=== PATIENT | male | born 1935 | race Caucasian/White ===

== ENCOUNTER 2020-12-16 21:16 | Emergency (ER) | payer MEDICARE, BC ==
[2020-12-16 21:34] VITALS: BP 141/73; PULSE 102
[2020-12-16] MEDS ORDERED: Lidocaine 2% Jelly 10 ML Urojet MUCMEM ONE (22:01)
--- NOTE | 2020-12-16 22:13 | EDM.PDOC ---
ED HPI GENERAL MEDICAL PROBLEM - General Chief Complaint: Genitourinary Problem Stated Complaint: CATHETER Time Seen by Provider: 12/16/20 21:45 Source of Information: Reports: Patient, Family History Limitations: Reports: No Limitations - History of Present Illness INITIAL COMMENTS - FREE TEXT/NARRATIVE: 85-year-old male who has suffered a stroke in the past year, has an indwelling Meredith catheter. Tonight he was reaching for a phone and accidentally caught the catheter and pulled it out with the balloon inflated. This is the second time this patient has done this in the past month, both times accidentally. He has an appointment with urology this Wednesday to assess the need for chronic indwelling catheter versus suprapubic catheter. There is some blood at the meatus but he is otherwise comfortable. Onset: Sudden Duration: Hour(s): (Within the last 2 hours) Associated Symptoms: Reports: Other (Gross hematuria and bleeding at the urethral meatus) - Related Data Allergies Allergy/AdvReac Type Severity Reaction Status Date / Time No Known Allergies Allergy Verified 01/30/13 08:20 Home Meds: Home Meds Aspirin 81 mg PO DAILY 01/25/13 [History] Latanoprost [Xalatan 0.005% Ophth Soln] 1 drop EYEBOTH BEDTIME 01/25/13 [History] Multivitamin [Multivitamins] 1 tab PO DAILY 01/25/13 [History] Acetaminophen 650 mg PO TID 12/16/20 [History] Albuterol Sulfate [Proair Digihaler] 90 mcg IH Q4H PRN 12/16/20 [History] Carboxymethylcellulose Sodium [Refresh Tears] 1 drop OP QID 12/16/20 [History] Famotidine 20 mg PO DAILY 12/16/20 [History] Lutein/Min/Vit C/Vit E Acetate [Ocuvite Lutein] 1 cap PO DAILY 12/16/20 [Histor y] Midodrine 2.5 mg PO BID 12/16/20 [History] Mirtazapine 15 mg PO BEDTIME 12/16/20 [History] Sennosides [Senna] 8.6 mg PO BID 12/16/20 [History] atorvaSTATin Calcium [Atorvastatin Calcium] 10 mg PO DAILY 12/16/20 [History] ondansetron HCL [Zofran] 4 mg PO Q6H PRN 12/16/20 [History] Past Medical History HEENT History: Reports: Glaucoma, Hard of Hearing, Impaired Vision Cardiovascular History: Reports: CAD, Stents Gastrointestinal History: Reports: Chronic Constipation, GERD Genitourinary History: Reports: Retention, Urinary, Other (See Below) Other Genitourinary History: meredith catheter in place since August 2020 Musculoskeletal History: Reports: Osteoarthritis Neurological History: Reports: Brain Injury, CVA, Head Trauma Oncologic (Cancer) History: Reports: Malignant Melanoma Dermatologic History: Reports: Other (See Below) Other Dermatologic History: malignant neoplasm - Infectious Disease History Infectious Disease History: Reports: Chicken Pox, Influenza, Measles, Mumps, Scarlet Fever - Past Surgical History Male Surgical History: Reports: Other (See Below) Other Male Surgeries/Procedures: cystoscopy recently Musculoskeletal Surgical History: Reports: Hip Replacement, Knee Replacement Dermatological Surgical History: Reports: Skin Biopsy Social & Family History - Tobacco Use Tobacco Use Status *Q: Never Tobacco User - Caffeine Use Caffeine Use: Reports: Coffee - Recreational Drug Use Recreational Drug Use: No ED ROS GENERAL - Review of Systems Review Of Systems: See Below Constitutional: Denies: Fever, Chills HEENT: Reports: No Symptoms Respiratory: Denies: Shortness of Breath Cardiovascular: Denies: Chest Pain GI/Abdominal: Reports: Abdominal Pain (Some lower abdominal discomfort after the injury, no distention). Denies: Diarrhea, Nausea, Vomiting : Reports: Hematuria, Pain ED EXAM, RENAL/ - Physical Exam Exam: See Below Exam Limited By: No Limitations General Appearance: Alert, No Apparent Distress Head: Atraumatic Neck: Supple Respiratory/Chest: Lungs Clear Cardiovascular: Regular Rate, Rhythm GI/Abdominal: Soft, Non-Tender, Other (No urinary distention at this time) (Male) Exam: Other (Fresh blood which is clotted is at the urethral meatus, no active bleeding) Neurological: Alert, Other (Mild confusion which is chronic) Psychiatric: Normal Affect, Normal Mood Skin Exam: Warm, Dry Course - Vital Signs Last Recorded V/S: Last Vital Signs Temp 97.6 F 12/16/20 21:58 Pulse 102 H 12/16/20 21:58 Resp 16 12/16/20 21:58 BP 141/73 H 12/16/20 21:58 Pulse Ox 99 12/16/20 21:58 - Orders/Labs/Meds Meds: Medications Discontinued Medications Generic Name Dose Route Start Last Admin Trade Name Jamshid PRN Reason Stop Dose Admin Lidocaine HCl 10 ml 12/16/20 22:01 12/16/20 22:08 Lidocaine 2% Jelly 10 Ml Urojet MUCMEM 12/16/20 22:02 10 ml ONETIME ONE Administration - Re-Assessments/Exams Free Text/Narrative Re-Assessment/Exam: 12/16/20 22:13 According to the son he will experience urine retention if the catheter is not replaced. A Urojet was ordered, used for anesthesia and a Meredith was replaced. 12/16/20 22:18 Meredith was replaced without difficulty, 400 cc of actually very clear urine was released. Patient will recheck with urology on Wednesday as scheduled. Departure - Departure Time of Disposition: 22:33 Disposition: DC/Tfer to Assisted Care 63 Clinical Impression: Traumatic injury of bladder and urethra Qualifiers: Encounter type: initial encounter Qualified Code(s): S37.20XA - Unspecified injury of bladder, initial encounter - Discharge Information Instructions: Indwelling Urinary Catheter Care, Adult, [id number] Referrals: Lawrence Esparza NP [Primary Care Provider] - Forms: ED Department Discharge Care Plan Goals: Return for problems with the Meredith catheter such as obstruction or unexplained pain. Otherwise recheck with urology on Wednesday as scheduled. Sepsis Event Note (ED) - Evaluation Sepsis Screening Result: No Definite Risk - Focused Exam Vital Signs: Vital Signs Temp Pulse Resp BP Pulse Ox 12/16/20 21:58 97.6 F 102 H 16 141/73 H 99 12/16/20 21:32 97.6 F 102 H 16 141/73 H 99
== END 2020-12-16 22:33 ==
LOC: JP.ED 21:16
DX: S37.20XA Unspecified injury of bladder, initial encounter (principal); S37.30XA Unspecified injury of urethra, initial encounter; I25.10 Atherosclerotic heart disease of native coronary artery without angina pectoris; K21.9 Gastro-esophageal reflux disease without esophagitis; M19.90 Unspecified osteoarthritis, unspecified site; Z79.899 Other long term (current) drug therapy; Z79.82 Long term (current) use of aspirin; W23.0XXA Caught, crushed, jammed, or pinched between moving objects, initial encounter
CPT/HCPCS: 51702; 99283-25

== ENCOUNTER 2021-01-14 01:54 | Emergency (ER) | payer MEDICARE, BC ==
[2021-01-14 02:32] VITALS: BP 134/50; PULSE 53
--- NOTE | 2021-01-14 02:39 | EDM.PDOC ---
ED HPI GENERAL MEDICAL PROBLEM - General Chief Complaint: Genitourinary Problem Stated Complaint: CATHETER ISSUES Time Seen by Provider: 01/14/21 02:15 Source of Information: Reports: Patient, Family History Limitations: Reports: No Limitations - History of Present Illness INITIAL COMMENTS - FREE TEXT/NARRATIVE: 85-year-old male with a history of a stroke earlier this year, now has a chronic indwelling Meredith catheter. He had his catheter changed earlier today and now it is malfunction and he has acute urinary retention and discomfort. There is very little drainage coming through the bag. He has lower abdominal fullness and pain, no other symptoms. Onset: Gradual Duration: Hour(s): (Symptoms have been worsening for the past 8 hours) Location: Reports: Abdomen (Lower abdomen) Associated Symptoms: Denies: Fever/Chills, Malaise, Nausea/Vomiting, Shortness of Breath Bladder Pain Score (Numeric/FACES): 10 - Related Data Allergies Allergy/AdvReac Type Severity Reaction Status Date / Time No Known Allergies Allergy Verified 01/14/21 02:32 Home Meds: Home Meds Aspirin 81 mg PO DAILY 01/25/13 [History] Latanoprost [Xalatan 0.005% Ophth Soln] 1 drop EYEBOTH BEDTIME 01/25/13 [History] Multivitamin [Multivitamins] 1 tab PO DAILY 01/25/13 [History] Acetaminophen 650 mg PO TID 12/16/20 [History] Albuterol Sulfate [Proair Digihaler] 90 mcg IH Q4H PRN 12/16/20 [History] Carboxymethylcellulose Sodium [Refresh Tears] 1 drop OP QID 12/16/20 [History] Famotidine 20 mg PO DAILY 12/16/20 [History] Lutein/Min/Vit C/Vit E Acetate [Ocuvite Lutein] 1 cap PO DAILY 12/16/20 [History] Midodrine 2.5 mg PO BID 12/16/20 [History] Mirtazapine 15 mg PO BEDTIME 12/16/20 [History] Sennosides [Senna] 8.6 mg PO BID 12/16/20 [History] atorvaSTATin Calcium [Atorvastatin Calcium] 10 mg PO DAILY 12/16/20 [History] ondansetron HCL [Zofran] 4 mg PO Q6H PRN 12/16/20 [History] Past Medical History HEENT History: Reports: Glaucoma, Hard of Hearing, Impaired Vision Cardiovascular History: Reports: CAD, Stents Gastrointestinal History: Reports: Chronic Constipation, GERD Genitourinary History: Reports: Retention, Urinary, Other (See Below) Other Genitourinary History: meredith catheter in place since August 2020 Musculoskeletal History: Reports: Osteoarthritis Neurological History: Reports: Brain Injury, CVA, Head Trauma Oncologic (Cancer) History: Reports: Malignant Melanoma Dermatologic History: Reports: Other (See Below) Other Dermatologic History: malignant neoplasm - Infectious Disease History Infectious Disease History: Reports: Chicken Pox, Influenza, Measles, Mumps, Scarlet Fever - Past Surgical History Male Surgical History: Reports: Other (See Below) Other Male Surgeries/Procedures: cystoscopy recently Musculoskeletal Surgical History: Reports: Hip Replacement, Knee Replacement Dermatological Surgical History: Reports: Skin Biopsy Social & Family History - Tobacco Use Tobacco Use Status *Q: Former Tobacco User Used Tobacco, but Quit: Yes Month/Year Tobacco Last Used: 1986 - Caffeine Use Caffeine Use: Reports: Coffee - Recreational Drug Use Recreational Drug Use: No ED ROS GENERAL - Review of Systems Review Of Systems: See Below Constitutional: Denies: Fever, Chills Respiratory: Denies: Shortness of Breath Cardiovascular: Denies: Chest Pain GI/Abdominal: Reports: Abdominal Pain Skin: Reports: No Symptoms Neurological: Denies: Headache ED EXAM, RENAL/ - Physical Exam Exam: See Below Exam Limited By: No Limitations General Appearance: Alert, Moderate Distress, Other (Patient is fairly uncomfortable due to urine retention) Respiratory/Chest: No Respiratory Distress GI/Abdominal: Tender (Tender with urinary bladder distention over the lower abdomen) Neurological: Alert, Oriented Skin Exam: Warm, Dry Course - Vital Signs Last Recorded V/S: Last Vital Signs Temp 97.9 F 01/14/21 02:29 Pulse 53 L 01/14/21 02:29 Resp 16 01/14/21 02:29 BP 134/50 L 01/14/21 02:29 Pulse Ox 99 01/14/21 02:29 - Re-Assessments/Exams Free Text/Narrative Re-Assessment/Exam: 01/14/21 06:39 Bladder scan revealed a bladder volume of 700 cc despite the catheter. Attempt to clear the catheter was done which was unsuccessful, so it was removed and replaced with a 14-gauge Meredith catheter. He had over 700 cc urine drained which there were a few small blood clots but mostly clear urine. His symptoms resolved. Departure - Departure Time of Disposition: 02:43 Disposition: Home, Self-Care 01 Clinical Impression: Acute urinary retention Malfunction of Meredith catheter Qualifiers: Encounter type: initial encounter Qualified Code(s): T83.011A - Breakdown (mechanical) of indwelling urethral catheter, initial encounter - Discharge Information Instructions: Indwelling Urinary Catheter Care, Adult Referrals: PCP,None [Primary Care Provider] - Forms: ED Department Discharge Care Plan Goals: Return if you redevelop problems with the current catheter such as obstruction, significant bleeding or pain. Sepsis Event Note (ED) - Evaluation Sepsis Screening Result: No Definite Risk - Focused Exam Vital Signs: Vital Signs Temp Pulse Resp BP Pulse Ox 01/14/21 02:29 97.9 F 53 L 16 134/50 L 99
== END 2021-01-14 02:51 | disposition home or self-care (01) ==
LOC: JP.ED 01:54
DX: T83.011A Breakdown (mechanical) of indwelling urethral catheter, initial encounter (principal); R33.9 Retention of urine, unspecified
CPT/HCPCS: 51702; 99283-25

== ENCOUNTER 2021-04-14 11:47 | Inpatient (IN) | payer MEDICARE, BC ==
[2021-04-14] MEDS ORDERED: Sodium Chloride 0.9% 10 ML Syringe FLUSH PRN (12:00)
--- NOTE | 2021-04-14 12:14 | EDM.PDOC ---
ED HPI GENERAL MEDICAL PROBLEM - General Chief Complaint: Cardiovascular Problem Stated Complaint: LOW HEART RATE Time Seen by Provider: 04/14/21 12:00 Source of Information: Reports: Patient, RN Notes Reviewed History Limitations: Reports: No Limitations - History of Present Illness INITIAL COMMENTS - FREE TEXT/NARRATIVE: 86-year-old gentleman presents emergency department today for evaluation of heart rate. He is completely asymptomatic he is a assisted-living resident was found to be bradycardic by nursing staff sent to the emergency department for further evaluation - Related Data Allergies Allergy/AdvReac Type Severity Reaction Status Date / Time No Known Allergies Allergy Verified 04/14/21 12:12 Home Meds: Home Meds Aspirin 81 mg PO DAILY 01/25/13 [History] Latanoprost [Xalatan 0.005% Ophth Soln] 1 drop EYEBOTH BEDTIME 01/25/13 [History] Multivitamin [Multivitamins] 1 tab PO DAILY 01/25/13 [History] Acetaminophen 650 mg PO TID 12/16/20 [History] Albuterol Sulfate [Proair Digihaler] 90 mcg IH Q4H PRN 12/16/20 [History] Carboxymethylcellulose Sodium [Refresh Tears] 1 drop OP QID 12/16/20 [History] Famotidine 20 mg PO DAILY 12/16/20 [History] Lutein/Min/Vit C/Vit E Acetate [Ocuvite Lutein] 1 cap PO DAILY 12/16/20 [History] Midodrine 2.5 mg PO BID 12/16/20 [History] Mirtazapine 15 mg PO BEDTIME 12/16/20 [History] Sennosides [Senna] 8.6 mg PO BID 12/16/20 [History] atorvaSTATin Calcium [Atorvastatin Calcium] 10 mg PO DAILY 12/16/20 [History] ondansetron HCL [Zofran] 4 mg PO Q6H PRN 12/16/20 [History] Past Medical History HEENT History: Reports: Glaucoma, Hard of Hearing, Impaired Vision Cardiovascular History: Reports: CAD, Stents Gastrointestinal History: Reports: Chronic Constipation, GERD Genitourinary History: Reports: Retention, Urinary, Other (See Below) Other Genitourinary History: meredith catheter in place since August 2020 Musculoskeletal History: Reports: Osteoarthritis Neurological History: Reports: Brain Injury, CVA, Head Trauma Oncologic (Cancer) History: Reports: Malignant Melanoma Dermatologic History: Reports: Other (See Below) Other Dermatologic History: malignant neoplasm - Infectious Disease History Infectious Disease History: Reports: Chicken Pox, Influenza, Measles, Mumps, Scarlet Fever - Past Surgical History Male Surgical History: Reports: Other (See Below) Other Male Surgeries/Procedures: cystoscopy recently Musculoskeletal Surgical History: Reports: Hip Replacement, Knee Replacement Dermatological Surgical History: Reports: Skin Biopsy Social & Family History - Caffeine Use Caffeine Use: Reports: Coffee ED ROS GENERAL - Review of Systems Review Of Systems: See Below Constitutional: Reports: No Symptoms Respiratory: Reports: No Symptoms Cardiovascular: Reports: No Symptoms GI/Abdominal: Reports: No Symptoms ED EXAM, GENERAL - Physical Exam Exam: See Below Exam Limited By: No Limitations General Appearance: Alert, WD/WN, No Apparent Distress Respiratory/Chest: No Respiratory Distress, Lungs Clear, Normal Breath Sounds, No Accessory Muscle Use, Chest Non-Tender Cardiovascular: Bradycardia #1 Interpretation EKG Date: 04/14/21 Time: 12:13 Rhythm: Other (3ed degree av block) Heartwell: Normal P-Wave: Variable QRS: Normal ST-T: Normal QT: Normal Comparison: NA - No Prior EKG Course - Vital Signs Last Recorded V/S: Last Vital Signs Temp 97.9 F 04/14/21 12:12 Pulse 34 L 04/14/21 13:40 Resp 12 04/14/21 12:56 BP 171/58 H 04/14/21 13:40 Pulse Ox 98 04/14/21 13:40 - Orders/Labs/Meds Orders: Active Orders 24 hr Category Date Time Status Cardiac Monitoring [RC] .As Directed Care 04/14/21 12:00 Active Peripheral IV Care [RC] . DIRECTED Care 04/14/21 12:01 Active Sodium Chloride 0.9% [Saline Flush] Med 04/14/21 12:00 Active 10 ml FLUSH ASDIRECTED PRN Peripheral IV Insertion Adult [OM.PC] Stat Oth 04/14/21 12:00 Ordered Saline Lock Insert [OM.PC] Stat Oth 04/14/21 12:00 Ordered EKG 12 Lead [EK] Stat Ther 04/14/21 12:01 Ordered Medication Orders Sodium Chloride (Sodium Chloride 0.9% 10 Ml Syringe) 10 ml FLUSH ASDIRECTED PRN PRN Reason: Keep Vein Open Last Admin: 04/14/21 12:17 Dose: 10 ml Documented by: PATRICIA Labs: Laboratory Tests 04/14/21 04/14/21 04/14/21 Range/Units 12:09 12:25 12:25 WBC 7.9 (4.5-11.0) K/uL RBC 4.03 L (4.30-5.90) M/uL Hgb 12.2 (12.0-15.0) g/dL Hct 37.3 L (40.0-54.0) % MCV 93 (80-98) fL MCH 30 (27-31) pg MCHC 33 (32-36) % Plt Count 183 (150-400) K/uL Neut % (Auto) 51.1 (36-66) % Lymph % (Auto) 34.0 (24-44) % Hancock % (Auto) 12.1 H (2-6) % Eos % (Auto) 2.3 (2-4) % Baso % (Auto) 0.5 (0-1) % Sodium 142 (140-148) mmol/L Potassium 4.1 (3.6-5.2) mmol/L Chloride 109 H (100-108) mmol/L Carbon Dioxide 22 (21-32) mmol/L Anion Gap 15.1 H (5.0-14.0) mmol/L BUN 11 (7-18) mg/dL Creatinine 0.9 (0.8-1.3) mg/dL Est Cr Clr Drug Dosing 58.59 mL/min Estimated GFR (MDRD) > 60 (>60) Glucose 120 H (74-106) mg/dL Calcium 8.6 (8.5-10.1) mg/dL Total Bilirubin 0.5 (0.2-1.0) mg/dL AST 13 L (15-37) U/L ALT 16 (12-78) U/L Alkaline Phosphatase 72 (46-116) U/L Troponin I High Sens 21.3 (<=60.3) pg/mL Total Protein 6.4 (6.4-8.2) g/dL Albumin 3.2 L (3.4-5.0) g/dL Globulin 3.2 (2.3-3.5) g/dL Albumin/Globulin Ratio 1.0 L (1.2-2.2) TSH, Ultra Sensitive 3.743 H (0.358-3.740) uIU/mL Meds: Medications Generic Name Dose Route Start Last Admin Trade Name Freq PRN Reason Stop Dose Admin Sodium Chloride 10 ml 04/14/21 12:00 04/14/21 12:17 Sodium Chloride 0.9% 10 Ml Syringe FLUSH 10 ml ASDIRECTED PRN Administration Keep Vein Open Departure - Departure Time of Disposition: 13:48 Disposition: Refer to Observation Condition: Fair Clinical Impression: Third degree AV block Referrals: Lawrence Esparza, [employer] ADMINISTRATOR [Primary Care Provider] - Forms: ED Department Discharge Sepsis Event Note (ED) - Evaluation Sepsis Screening Result: No Definite Risk - Focused Exam Vital Signs: Vital Signs Temp Pulse Resp BP Pulse Ox 04/14/21 13:40 34 L 171/58 H 98 04/14/21 12:56 35 L 12 151/47 H 100 04/14/21 12:31 35 L 15 173/59 H 100 04/14/21 12:12 97.9 F 36 L 20 184/58 H 98 04/14/21 12:00 97.9 F 36 L 20 184/58 H 98 - My Orders Last 24 Hours: My Active Orders 04/14/21 12:00 Cardiac Monitoring [RC] .As Directed Sodium Chloride 0.9% [Saline Flush] 10 ml FLUSH ASDIRECTED PRN Peripheral IV Insertion Adult [OM.PC] Stat Saline Lock Insert [OM.PC] Stat 04/14/21 12:01 Peripheral IV Care [RC] . DIRECTED EKG 12 Lead [EK] Stat - Assessment/Plan Last 24 Hours: My Active Orders 04/14/21 12:00 Cardiac Monitoring [RC] .As Directed Sodium Chloride 0.9% [Saline Flush] 10 ml FLUSH ASDIRECTED PRN Peripheral IV Insertion Adult [OM.PC] Stat Saline Lock Insert [OM.PC] Stat 04/14/21 12:01 Peripheral IV Care [RC] . DIRECTED EKG 12 Lead [EK] Stat Plan: Assessment Acuity = acute Site and laterality = third-degree heart block Etiology = unknown Manifestations = bradycardia Location of injury = Home Lab values = CBC unremarkable CMP unremarkable TSH slightly elevated 3.74 EKG shows bradycardia with no ST elevations or depressions there is a third-degree heart block present Plan Call discussed case Dr. Hendricks surgeon on-call at 1330 kindly agreed for pacemaker placement plan is to call the pacemaker route service representative cortney get a pacemaker in for implantation tomorrow morning. Call discussed hospitalist on- call currently agreed to come to the ED and evaluate the patient for admission This note was dictated using [employer] voice recognition software please call with any questions on syntax or grammar.
--- NOTE | 2021-04-14 14:31 | PCM.HP.2 ---
H&P History of Present Illness - General Date of Service: 04/14/21 Admit Problem/Dx: Admission Diagnosis/Problem Admission Diagnosis/Problem Complete heart block by electrocardiogram Source of Information: Patient, Family, Provider History Limitations: Reports: No Limitations - History of Present Illness Initial Comments - Free Text/Narative: CC: I feel fine HPI: Butch presents to the emergency room today at the recommendation of the nurse at his assisted living facility. They were doing routine checks of his vital signs and found his heart rate to be in the 30s. He reports that he feels fine. He has not had any dizziness or lightheadedness with standing or walking. He has not had any chest tightness or chest pain. He does not get short of breath when he is active. He walks about 1/2 mile each morning and has had no limitations or change in his functional status for quite some time. No recent fevers. He reports that he feels well and has not had any recent difficulties. He does have chronic urinary retention and has a Meredith catheter in place. He has had multiple previous surgeries and has never had any difficulty with anesthesia. Work-up in the emergency room did reveal complete heart block on the EKG. His heart rate has been pretty consistent in the low 30s. Blood pressure has been moderately elevated. Lab work has been fairly unremarkable. Plan is for pacemaker implantation tomorrow. - Related Data Allergies/Adverse Reactions: Allergies Allergy/AdvReac Type Severity Reaction Status Date / Time No Known Allergies Allergy Verified 04/14/21 12:12 Home Medications: Home Meds Aspirin 81 mg PO DAILY 01/25/13 [History] Latanoprost [Xalatan 0.005% [facility] Soln] 1 drop EYEBOTH BEDTIME 01/25/13 [History] Multivitamin [Multivitamins] 1 tab PO DAILY 01/25/13 [History] Acetaminophen 650 mg PO TID 12/16/20 [History] Albuterol Sulfate [Proair Digihaler] 90 mcg IH Q4H PRN 12/16/20 [History] Carboxymethylcellulose Sodium [Refresh Tears] 1 drop OP QID 12/16/20 [History] Famotidine 20 mg PO DAILY 12/16/20 [History] Lutein/Min/Vit C/Vit E Acetate [Ocuvite Lutein] 1 cap PO DAILY 12/16/20 [History] Midodrine 2.5 mg PO BID 12/16/20 [History] Mirtazapine 15 mg PO BEDTIME 12/16/20 [History] Sennosides [Senna] 8.6 mg PO BID 12/16/20 [History] atorvaSTATin Calcium [Atorvastatin Calcium] 10 mg PO DAILY 12/16/20 [History] ondansetron HCL [Zofran] 4 mg PO Q6H PRN 12/16/20 [History] Past Medical History HEENT History: Reports: Glaucoma, Hard of Hearing, Impaired Vision Cardiovascular History: Reports: CAD, Stents Gastrointestinal History: Reports: Chronic Constipation, GERD Genitourinary History: Reports: Retention, Urinary, Other (See Below) Other Genitourinary History: meredith catheter in place since August 2020 Musculoskeletal History: Reports: Osteoarthritis Neurological History: Reports: Brain Injury, CVA, Head Trauma Oncologic (Cancer) History: Reports: Malignant Melanoma, Other (See Below) Other Oncologic History: skin cancer Dermatologic History: Reports: Other (See Below) Other Dermatologic History: malignant neoplasm - Infectious Disease History Infectious Disease History: Reports: Chicken Pox, Influenza, Measles, Mumps, Scarlet Fever - Past Surgical History Male Surgical History: Reports: Other (See Below) Other Male Surgeries/Procedures: cystoscopy recently Musculoskeletal Surgical History: Reports: Hip Replacement, Knee Replacement Dermatological Surgical History: Reports: Skin Biopsy Social & Family History - Family History Cardiac: Denies: CAD - Tobacco Use Tobacco Use Status *Q: Former Tobacco User Used Tobacco, but Quit: Yes Month/Year Tobacco Last Used: 0 - Caffeine Use Caffeine Use: Reports: Coffee - Alcohol Use Alcohol Use History: No Alcohol Use in Last Twelve Months: No - Recreational Drug Use Recreational Drug Use: No H&P Review of Systems - Review of Systems: Review Of Systems: See Below Free Text/Narrative: A complete 12 point review of systems was obtained. Pertinent positives and negatives are noted in the history of present illness. All other systems were reviewed and were negative except as noted. Exam - Exam Exam: See Below - Vital Signs Vital Signs: Last Vital Signs Temp 36.6 C 04/14/21 12:12 Pulse 34 L 04/14/21 13:40 Resp 12 04/14/21 12:56 BP 171/58 H 04/14/21 13:40 Pulse Ox 98 04/14/21 13:40 Weight: 70.307 kg - Exam Quality Assessment: No: Supplemental Oxygen General: Alert, Oriented, Cooperative. No: Mild Distress HEENT: Conjunctiva Clear, Mucosa Moist & [place]. No: Scleral Icterus Neck: Supple, Trachea Midline. No: Lymphadenopathy Lungs: Clear to Auscultation, Normal Respiratory Effort Cardiovascular: Regular Rhythm, Bradycardia. No: Systolic Murmur GI/Abdominal Exam: Normal Bowel Sounds, Soft, Non-Tender, No Distention Extremities: No Pedal Edema, Other (catheter leg bag on right leg). No: Increased Warmth Peripheral Pulses: 2+: Dorsalis Pedis (L), Dorsalis Pedis (R) Skin: Warm, Dry, Other (round scab left cheek near the ear ) Neuro Extensive - Mental Status: Alert, Oriented x3, Nl Response to Commands Neuro Extensive - Motor, Sensory, Reflexes: No: Dysarthria, Abnormal Motor, Tremor Psychiatric: Alert, Normal Affect - Patient Data Lab Results Last 24 hrs: Laboratory Results - last 24 hr 04/14/21 04/14/21 04/14/21 Range/Units 12:09 12:25 12:25 WBC 7.9 (4.5-11.0) K/uL RBC 4.03 L (4.30-5.90) M/uL Hgb 12.2 (12.0-15.0) g/dL Hct 37.3 L (40.0-54.0) % MCV 93 (80-98) fL MCH 30 (27-31) pg MCHC 33 (32-36) % Plt Count 183 (150-400) K/uL Neut % (Auto) 51.1 (36-66) % Lymph % (Auto) 34.0 (24-44) % [place] % (Auto) 12.1 H (2-6) % Eos % (Auto) 2.3 (2-4) % Baso % (Auto) 0.5 (0-1) % Sodium 142 (140-148) mmol/L Potassium 4.1 (3.6-5.2) mmol/L Chloride 109 H (100-108) mmol/L Carbon Dioxide 22 (21-32) mmol/L Anion Gap 15.1 H (5.0-14.0) mmol/L BUN 11 (7-18) mg/dL Creatinine 0.9 (0.8-1.3) mg/dL Est Cr Clr Drug Dosing 58.59 mL/min Estimated GFR (MDRD) > 60 (>60) Glucose 120 H (74-106) mg/dL Calcium 8.6 (8.5-10.1) mg/dL Total Bilirubin 0.5 (0.2-1.0) mg/dL AST 13 L (15-37) U/L ALT 16 (12-78) U/L Alkaline Phosphatase 72 (46-116) U/L Troponin I High Sens 21.3 (<=60.3) pg/mL Total Protein 6.4 (6.4-8.2) g/dL Albumin 3.2 L (3.4-5.0) g/dL Globulin 3.2 (2.3-3.5) g/dL Albumin/Globulin Ratio 1.0 L (1.2-2.2) TSH, Ultra Sensitive 3.743 H (0.358-3.740) uIU/mL Result Diagrams: 04/14/21 12:25 04/14/21 12:25 #1 Interpretation EKG Date: 04/14/21 Rhythm: Other (complete heart block) Rate (Beats/Min): 34 [place]: Normal P-Wave: Present QRS: RBBB ST-T: Normal QT: Normal Comparison: Change From Previous EKG EKG Interpretation Comments: EKG image personally reviewed Sepsis Event Note - Evaluation Sepsis Screening Result: No Definite Risk - Focused Exam Vital Signs: Vital Signs Temp Pulse Resp BP Pulse Ox 04/14/21 13:40 34 L 171/58 H 98 04/14/21 12:56 35 L 12 151/47 H 100 04/14/21 12:31 35 L 15 173/59 H 100 04/14/21 12:12 36.6 C 36 L 20 184/58 H 98 04/14/21 12:00 36.6 C 36 L 20 184/58 H 98 *Q Meaningful Use (ADM) - VTE Risk Assess *Q Each Risk Factor Represents 1 Point: Minor Surgery Planned Total Score 1 Point Risk Factors: 1 Each Risk Factor Represents 2 Points: Malignancy (present or previous) Total Score 2 Point Risk Factors: 2 Each Risk Factor Represents 3 Points: Age 75 Years or Greater Total Score 3 Point Risk Factors: 3 Each Risk Factor Represents 5 Points: None Total Score 5 Point Risk Factors: 0 Venous Thromboembolism Risk Factor Score *Q: 6 - Problem List (1) Third degree AV block SNOMED Code(s): 72872341 ICD Code: I44.2 - ATRIOVENTRICULAR BLOCK, COMPLETE Status: Acute Current Visit: Yes (2) CAD (coronary artery disease) SNOMED Code(s): 06516802 ICD Code: I25.10 - ATHSCL HEART DISEASE OF [place] CORONARY ARTERY W/O ANG PCTRS Status: Chronic Current Visit: Yes Qualifiers: Coronary Disease-Associated Artery/Lesion type: [place] artery [place] vs. transplanted heart: [place] heart Associated angina: without angina Qualified Code(s): I25.10 - Atherosclerotic heart disease of [place] coronary artery without angina pectoris (3) Urinary retention SNOMED Code(s): 683663257 ICD Code: R33.9 - RETENTION OF URINE, UNSPECIFIED Status: Chronic Current Visit: Yes Problem List Initiated/Reviewed/Updated: Yes Orders Last 24hrs: Active Orders 24 hr Category Date Time Status Patient Status Manage Transfer [TRANSFER] Routine ADT 04/14/21 14:21 Ordered Cardiac Monitoring [RC] .As Directed Care 04/14/21 12:00 Active Peripheral IV Care [RC] . DIRECTED Care 04/14/21 12:01 Active COVID-19/FLU A+B/RSV [MOLEC] Stat Lab 04/14/21 14:16 Ordered Sodium Chloride 0.9% [Saline Flush] Med 04/14/21 12:00 Active 10 ml FLUSH ASDIRECTED PRN Isolation [COMM] Stat Oth 04/14/21 14:02 Ordered Peripheral IV Insertion Adult [OM.PC] Stat Oth 04/14/21 12:00 Ordered Saline Lock Insert [OM.PC] Stat Oth 04/14/21 12:00 Ordered Resuscitation Status Routine Resus Stat 04/14/21 14:23 Ordered EKG 12 Lead [EK] Stat Ther 04/14/21 12:01 Ordered Medication Orders Sodium Chloride (Sodium Chloride 0.9% 10 Ml Syringe) 10 ml FLUSH ASDIRECTED PRN PRN Reason: Keep Vein Open Last Admin: 04/14/21 12:17 Dose: 10 ml Documented by: PATRICIA Assessment/Plan Comment:: ASSESSMENT AND PLAN - Complete heart block-surprisingly no/minimal symptoms. Found during routine vital sign check. Risk versus benefit of pacemaker implantation discussed with patient and he is interested in pacemaker placement. No previous difficulty with anesthesia. Good functional status. I believe he is in optimal achievable medical condition for the proposed procedure. -Leave transcutaneous pacing pads in place overnight, pace if indicated -Cardiac monitoring -Surgical consultation for pacemaker placement tomorrow Coronary artery disease-history of stenting about 20 years ago. No active anginal symptoms. -Continue medical management Urinary retention-chronic issue. No recent changes. -Routine Meredith catheter care Maintenance issues - -DVT prophylaxis-mechanical -GI prophylaxis-H2 rosalba -Nutrition-regular diet today, nothing by mouth after midnight -Meredith catheter-chronic indwelling catheter CODE STATUS -DNR/DNI Admission justification -this patient will be admitted for inpatient services and is medically appropriate meeting medical necessity for inpatient admission as outlined in my documentation. I reasonably expect the patient will require inpatient services that span a period time over 2 midnights. I reasonably expect this patient to be discharged or transferred within 96 hours after admission to the [facility]. Disposition -I anticipate discharge home after the hospital stay Primary care physician - Rajani Catherine - Extended Care Sukhwinder Jordan M.D. - Mortality Measure Prognosis:: Good
[2021-04-14 14:56] LABS: CORONAVIRUS COVID-19 NAA NEGATIVE (NEGATIVE)
[2021-04-14] MEDS ORDERED: Ondansetron 4 MG/2 ML SDV IV PRN (16:59)
[2021-04-14] MEDS ORDERED: LORazepam 2 MG/ML SDV IVPUSH PRN (16:59)
[2021-04-14] MEDS ORDERED: Ondansetron 4 MG Tab.DIS PO PRN (16:59)
[2021-04-14] MEDS ORDERED: Magnesium Hydroxide 400 MG/5 ML Susp 30 ML Cup PO PRN (16:59)
[2021-04-14] MEDS ORDERED: Acetaminophen 325 MG Tab PO PRN (16:59)
[2021-04-14] MEDS ORDERED: Melatonin 3 MG Tab PO PRN (16:59)
[2021-04-14] MEDS ORDERED: oxyCODONE 5 MG Tab PO PRN (16:59)
[2021-04-14] MEDS: Hypromellose 0.3% Ophth Soln 15 ML Bottle EYEBOTH SCH ×2 (18:37→22:00)
[2021-04-14] MEDS: Midodrine 5 MG Tab PO SCH (18:38)
[2021-04-14] MEDS: Sennosides 8.6 MG Tab PO SCH (20:08)
[2021-04-14] MEDS: Latanoprost 0.005% Ophth Soln 2.5 ML Bottle EYEBOTH SCH (20:09)
[2021-04-14] MEDS: Mirtazapine 15 MG Tab PO SCH (20:09)
[2021-04-14] MEDS: Acetaminophen 325 MG Tab PO SCH (20:09)
[2021-04-14] MEDS ORDERED: Lactated Ringers 1,000 ML IV SCH (23:00)
[2021-04-15] MEDS: Hypromellose 0.3% Ophth Soln 15 ML Bottle EYEBOTH SCH ×4 (05:31→21:12)
[2021-04-15] MEDS ORDERED: Bupivacaine 0.5% 50 ML MDV ONE (06:41)
[2021-04-15] MEDS ORDERED: Lidocaine 1% with EPINEPHrine 1:100,000 50 ML MDV ONE (06:42)
[2021-04-15] MEDS ORDERED: Meropenem 500 MG SDV ONE (06:42)
[2021-04-15] MEDS ORDERED: ceFAZolin 2 GM in Premix Bag 1 BAG IV ONE (06:55)
--- NOTE | 2021-04-15 07:14 | PCM.CONS ---
H&P History of Present Illness - General Date of Service: 04/15/21 Admit Problem/Dx: Admission Diagnosis/Problem Admission Diagnosis/Problem Complete heart block by electrocardiogram Source of Information: Patient History Limitations: Reports: No Limitations - History of Present Illness Initial Comments - Free Text/Narative: Butch is an 86 year old male who lives in assisted living and had his routine vital signs checked yesterday and was found to have a heart rate in the 30s. He was evaluated in the ED and was diagnosed with 3rd Degree Heart Block. Reports no symptoms. NPO this morning. Associated Symptoms: Reports: No Other Symptoms - Related Data Allergies/Adverse Reactions: Allergies Allergy/AdvReac Type Severity Reaction Status Date / Time No Known Allergies Allergy Verified 04/14/21 12:12 Home Medications: Home Meds Aspirin 81 mg PO DAILY 01/25/13 [History] Latanoprost [Xalatan 0.005% [facility] Soln] 1 drop EYEBOTH BEDTIME 01/25/13 [History] Multivitamin [Multivitamins] 1 tab PO DAILY 01/25/13 [History] Acetaminophen 650 mg PO TID 12/16/20 [History] Albuterol Sulfate [Proair Digihaler] 90 mcg IH Q4H PRN 12/16/20 [History] Carboxymethylcellulose Sodium [Refresh Tears] 1 drop OP QID 12/16/20 [History] Famotidine 20 mg PO DAILY 12/16/20 [History] Lutein/Min/Vit C/Vit E Acetate [Ocuvite Lutein] 1 cap PO DAILY 12/16/20 [History] Midodrine 2.5 mg PO BID 12/16/20 [History] Mirtazapine 15 mg PO BEDTIME 12/16/20 [History] Sennosides [Senna] 8.6 mg PO BID 12/16/20 [History] atorvaSTATin Calcium [Atorvastatin Calcium] 10 mg PO DAILY 12/16/20 [History] ondansetron HCL [Zofran] 4 mg PO Q6H PRN 12/16/20 [History] Past Medical History HEENT History: Reports: Glaucoma, Hard of Hearing, Impaired Vision Cardiovascular History: Reports: CAD, Stents Gastrointestinal History: Reports: Chronic Constipation, GERD Genitourinary History: Reports: Retention, Urinary, Other (See Below) Other Genitourinary History: meredith catheter in place since August 2020 Musculoskeletal History: Reports: Osteoarthritis Neurological History: Reports: Brain Injury, CVA, Head Trauma Oncologic (Cancer) History: Reports: Malignant Melanoma, Other (See Below) Other Oncologic History: skin cancer Dermatologic History: Reports: Other (See Below) Other Dermatologic History: malignant neoplasm - Infectious Disease History Infectious Disease History: Reports: Chicken Pox, Influenza, Measles, Mumps, Scarlet Fever - Past Surgical History Male Surgical History: Reports: Other (See Below) Other Male Surgeries/Procedures: cystoscopy recently Musculoskeletal Surgical History: Reports: Hip Replacement, Knee Replacement Dermatological Surgical History: Reports: Skin Biopsy Social & Family History - Family History Cardiac: Denies: CAD - Tobacco Use Tobacco Use Status *Q: Former Tobacco User Used Tobacco, but Quit: Yes Month/Year Tobacco Last Used: 0 - Caffeine Use Caffeine Use: Reports: Coffee - Recreational Drug Use Recreational Drug Use: No H&P Review of Systems - Review of Systems: Review Of Systems: Comprehensive ROS is negative, except as noted in HPI. Exam - Exam Exam: See Below - Vital Signs Vital Signs: Last Vital Signs Temp 97.8 F 04/15/21 04:00 Pulse 33 L 04/15/21 01:09 Resp 14 04/15/21 04:00 BP 162/65 H 04/15/21 04:00 Pulse Ox 99 04/15/21 04:00 Weight: 155 lb 6.814 oz - Exam General: Alert, Oriented, Cooperative HEENT: PERRLA, Conjunctiva Clear Neck: Supple, Trachea Midline Lungs: Clear to Auscultation, Normal Respiratory Effort Cardiovascular: Other (Heart rate at 36. ) (Male) Exam: Deferred Rectal (Males) Exam: Deferred Back Exam: Normal Inspection Extremities: Normal Inspection Skin: Warm, Dry, Intact Neurological: Cranial Nerves Intact Neuro Extensive - Mental Status: Alert, Oriented x3, Normal Mood/Affect, Memory Intact Psychiatric: Alert, Normal Affect, Normal Mood - Patient Data Lab Results Last 24 hrs: Laboratory Results - last 24 hr 04/14/21 04/14/21 04/14/21 Range/Units 12:09 12:25 12:25 WBC 7.9 (4.5-11.0) K/uL RBC 4.03 L (4.30-5.90) M/uL Hgb 12.2 (12.0-15.0) g/dL Hct 37.3 L (40.0-54.0) % MCV 93 (80-98) fL MCH 30 (27-31) pg MCHC 33 (32-36) % Plt Count 183 (150-400) K/uL Neut % (Auto) 51.1 (36-66) % Lymph % (Auto) 34.0 (24-44) % [place] % (Auto) 12.1 H (2-6) % Eos % (Auto) 2.3 (2-4) % Baso % (Auto) 0.5 (0-1) % Sodium 142 (140-148) mmol/L Potassium 4.1 (3.6-5.2) mmol/L Chloride 109 H (100-108) mmol/L Carbon Dioxide 22 (21-32) mmol/L Anion Gap 15.1 H (5.0-14.0) mmol/L BUN 11 (7-18) mg/dL Creatinine 0.9 (0.8-1.3) mg/dL Est Cr Clr Drug Dosing 58.59 mL/min Estimated GFR (MDRD) > 60 (>60) Glucose 120 H (74-106) mg/dL Calcium 8.6 (8.5-10.1) mg/dL Total Bilirubin 0.5 (0.2-1.0) mg/dL AST 13 L (15-37) U/L ALT 16 (12-78) U/L Alkaline Phosphatase 72 (46-116) U/L Troponin I High Sens 21.3 (<=60.3) pg/mL Total Protein 6.4 (6.4-8.2) g/dL Albumin 3.2 L (3.4-5.0) g/dL Globulin 3.2 (2.3-3.5) g/dL Albumin/Globulin Ratio 1.0 L (1.2-2.2) TSH, Ultra Sensitive 3.743 H (0.358-3.740) uIU/mL Influenza Type A RNA (NEGATIVE) RSV RNA (INAAT) (NEGATIVE) Influenza Type B RNA (NEGATIVE) SARS-CoV-2 RNA (VIGNESH) (NEGATIVE) 04/14/21 Range/Units 14:16 WBC (4.5-11.0) K/uL RBC (4.30-5.90) M/uL Hgb (12.0-15.0) g/dL Hct (40.0-54.0) % MCV (80-98) fL MCH (27-31) pg MCHC (32-36) % Plt Count (150-400) K/uL Neut % (Auto) (36-66) % Lymph % (Auto) (24-44) % [place] % (Auto) (2-6) % Eos % (Auto) (2-4) % Baso % (Auto) (0-1) % Sodium (140-148) mmol/L Potassium (3.6-5.2) mmol/L Chloride (100-108) mmol/L Carbon Dioxide (21-32) mmol/L Anion Gap (5.0-14.0) mmol/L BUN (7-18) mg/dL Creatinine (0.8-1.3) mg/dL Est Cr Clr Drug Dosing mL/min Estimated GFR (MDRD) (>60) Glucose (74-106) mg/dL Calcium (8.5-10.1) mg/dL Total Bilirubin (0.2-1.0) mg/dL AST (15-37) U/L ALT (12-78) U/L Alkaline Phosphatase (46-116) U/L Troponin I High Sens (<=60.3) pg/mL Total Protein (6.4-8.2) g/dL Albumin (3.4-5.0) g/dL Globulin (2.3-3.5) g/dL Albumin/Globulin Ratio (1.2-2.2) TSH, Ultra Sensitive (0.358-3.740) uIU/mL Influenza Type A RNA Negative (NEGATIVE) RSV RNA (INAAT) Negative (NEGATIVE) Influenza Type B RNA Negative (NEGATIVE) SARS-CoV-2 RNA (VIGNESH) Negative (NEGATIVE) Result Diagrams: 04/14/21 12:25 04/14/21 12:25 Sepsis Event Note - Evaluation Sepsis Screening Result: No Definite Risk - Focused Exam Vital Signs: Vital Signs Temp Pulse Resp BP Pulse Ox 04/15/21 04:00 97.8 F 14 162/65 H 99 04/15/21 02:00 16 143/39 H 97 04/15/21 01:09 97.6 F 33 L 15 152/46 H 96 04/15/21 00:00 97.6 F 12 100/32 L 98 04/14/21 22:00 12 156/48 H 99 04/14/21 19:42 98 F 12 170/58 H 96 Consult PN Assessment/Plan POD#: 0 Procedures: Procedures Schedule and Have Consent signed for: Insertion of Dual Chamber Pacemaker 04/15/2021 - Case to Follow Nickolas Hendricks MD Ancef 2 Grams IV senior instructional designer to OR. After preoperative evaluation and discussion of possible risks and complications patient wishes to proceed with surgical procedure. Orders to be written post operatively. Thank you for this consultation. Sandrine Cardenas 04/15/2021 Problem List Initiated/Reviewed/Updated: Yes My Orders Last 24 Hours: My Active Orders 04/15/21 06:54 Verify Patient Consent Obtain [RC] ASDIRECTED 04/15/21 06:55 ceFAZolin [Ancef] 2 gm Premix Bag 1 bag IV ONETIME Plan: Plan to be discharged tomorrow - 04/17/2021.
[2021-04-15] MEDS ORDERED: fentaNYL 100 MCG/2 ML SDV ONE (08:03)
[2021-04-15] MEDS ORDERED: Propofol 200 MG/20 ML SDV ONE (08:30)
[2021-04-15] MEDS: [UNRECOGNIZED DRUG - OTHER] PO SCH (10:24)
[2021-04-15] MEDS: VIT C PO SCH (10:24)
[2021-04-15] MEDS: LUTEIN PO SCH (10:24)
[2021-04-15] MEDS: Midodrine 5 MG Tab PO SCH ×2 (10:26→17:06)
[2021-04-15] MEDS: atorvaSTATin 10 MG Tab PO SCH (10:27)
[2021-04-15] MEDS: Aspirin 81 MG Tab.Chew PO SCH (10:27)
[2021-04-15] MEDS: Sennosides 8.6 MG Tab PO SCH ×2 (10:28→20:12)
[2021-04-15] MEDS: Famotidine 20 MG Tab PO SCH (10:29)
[2021-04-15] MEDS: Multivitamins with Iron/Calcium/Folic Acid/Minerals Tab PO SCH (10:29)
[2021-04-15] MEDS: Acetaminophen 325 MG Tab PO SCH ×3 (10:30→20:12)
--- NOTE | 2021-04-15 11:57 | PCM.PN ---
- General Info Date of Service: 04/15/21 Subjective Update: There were no acute events overnight. Heart rate remained steady in the mid 30s. Patient did not have any chest pain or dizziness. He had an uneventful insertion of a pacemaker today. Heart rate has been in the 70s and 80s since surgery. He does not have any pain at this time. Functional Status: Reports: Pain Controlled - Review of Systems General: Denies: Weakness Pulmonary: Denies: Shortness of Breath Cardiovascular: Denies: Chest Pain - Patient Data Vitals - Most Recent: Last Vital Signs Temp 36.1 C 04/15/21 09:55 Pulse 80 04/15/21 09:55 Resp 14 04/15/21 09:55 BP 159/75 H 04/15/21 09:55 Pulse Ox 96 04/15/21 09:55 Weight - Most Recent: 70.307 kg I&O - Last 24 Hours: Intake & Output 04/14/21 04/15/21 04/15/21 22:59 06:59 14:59 Intake Total 500 50 Output Total 900 Balance -400 50 Lab Results Last 24 Hours: Laboratory Results - last 24 hr 04/14/21 04/14/21 04/14/21 Range/Units 12:09 12:25 12:25 WBC 7.9 (4.5-11.0) K/uL RBC 4.03 L (4.30-5.90) M/uL Hgb 12.2 (12.0-15.0) g/dL Hct 37.3 L (40.0-54.0) % MCV 93 (80-98) fL MCH 30 (27-31) pg MCHC 33 (32-36) % Plt Count 183 (150-400) K/uL Neut % (Auto) 51.1 (36-66) % Lymph % (Auto) 34.0 (24-44) % Mccormick % (Auto) 12.1 H (2-6) % Eos % (Auto) 2.3 (2-4) % Baso % (Auto) 0.5 (0-1) % Sodium 142 (140-148) mmol/L Potassium 4.1 (3.6-5.2) mmol/L Chloride 109 H (100-108) mmol/L Carbon Dioxide 22 (21-32) mmol/L Anion Gap 15.1 H (5.0-14.0) mmol/L BUN 11 (7-18) mg/dL Creatinine 0.9 (0.8-1.3) mg/dL Est Cr Clr Drug Dosing 58.59 mL/min Estimated GFR (MDRD) > 60 (>60) Glucose 120 H (74-106) mg/dL Calcium 8.6 (8.5-10.1) mg/dL Total Bilirubin 0.5 (0.2-1.0) mg/dL AST 13 L (15-37) U/L ALT 16 (12-78) U/L Alkaline Phosphatase 72 (46-116) U/L Troponin I High Sens 21.3 (<=60.3) pg/mL Total Protein 6.4 (6.4-8.2) g/dL Albumin 3.2 L (3.4-5.0) g/dL Globulin 3.2 (2.3-3.5) g/dL Albumin/Globulin Ratio 1.0 L (1.2-2.2) TSH, Ultra Sensitive 3.743 H (0.358-3.740) uIU/mL Influenza Type A RNA (NEGATIVE) RSV RNA (INAAT) (NEGATIVE) Influenza Type B RNA (NEGATIVE) SARS-CoV-2 RNA (VIGNESH) (NEGATIVE) 04/14/21 Range/Units 14:16 WBC (4.5-11.0) K/uL RBC (4.30-5.90) M/uL Hgb (12.0-15.0) g/dL Hct (40.0-54.0) % MCV (80-98) fL MCH (27-31) pg MCHC (32-36) % Plt Count (150-400) K/uL Neut % (Auto) (36-66) % Lymph % (Auto) (24-44) % Mccormick % (Auto) (2-6) % Eos % (Auto) (2-4) % Baso % (Auto) (0-1) % Sodium (140-148) mmol/L Potassium (3.6-5.2) mmol/L Chloride (100-108) mmol/L Carbon Dioxide (21-32) mmol/L Anion Gap (5.0-14.0) mmol/L BUN (7-18) mg/dL Creatinine (0.8-1.3) mg/dL Est Cr Clr Drug Dosing mL/min Estimated GFR (MDRD) (>60) Glucose (74-106) mg/dL Calcium (8.5-10.1) mg/dL Total Bilirubin (0.2-1.0) mg/dL AST (15-37) U/L ALT (12-78) U/L Alkaline Phosphatase (46-116) U/L Troponin I High Sens (<=60.3) pg/mL Total Protein (6.4-8.2) g/dL Albumin (3.4-5.0) g/dL Globulin (2.3-3.5) g/dL Albumin/Globulin Ratio (1.2-2.2) TSH, Ultra Sensitive (0.358-3.740) uIU/mL Influenza Type A RNA Negative (NEGATIVE) RSV RNA (INAAT) Negative (NEGATIVE) Influenza Type B RNA Negative (NEGATIVE) SARS-CoV-2 RNA (VIGNESH) Negative (NEGATIVE) Med Orders - Current: Current Medications Acetaminophen (Acetaminophen 325 Mg Tab) 650 mg PO TID [facility] Last Admin: 04/15/21 10:30 Dose: 650 mg Documented by: Acetaminophen (Acetaminophen 325 Mg Tab) 650 mg PO Q4H PRN PRN Reason: Pain (Mild 1-3)/fever Artificial Tears (Hypromellose 0.3% Ophth Soln 15 Ml Bottle) 0 ml EYEBOTH QID [facility] Last Admin: 04/15/21 10:30 Dose: 1 drop Documented by: Aspirin (Aspirin 81 Mg Tab.Chew) 81 mg PO DAILY [facility] Last Admin: 04/15/21 10:27 Dose: 81 mg Documented by: Atorvastatin Calcium (Atorvastatin 10 Mg Tab) 10 mg PO DAILY [facility] Last Admin: 04/15/21 10:27 Dose: 10 mg Documented by: Famotidine (Famotidine 20 Mg Tab) 20 mg PO DAILY [facility] Last Admin: 04/15/21 10:29 Dose: 20 mg Documented by: Dextrose/Lactated Ringer's (Dextrose 5%-Lactated Ringers) 1,000 mls @ 80 mls/hr IV ASDIRECTED [facility] Cefazolin Sodium/Dextrose 2 gm (/ Premix) 50 mls @ 100 mls/hr IV Q8H ALEJANDRO Latanoprost (Latanoprost 0.005% Ophth Soln 2.5 Ml Bottle) 0 ml EYEBOTH BEDTIME [facility] Last Admin: 04/14/21 20:09 Dose: 1 dose Documented by: Lorazepam (Lorazepam 2 Mg/Ml Sdv) 0.5 mg IVPUSH Q4H PRN PRN Reason: Nausea/Vomiting Magnesium Hydroxide (Magnesium Hydroxide 400 Mg/5 Ml Susp 30 Ml Cup) 30 ml PO Q12H PRN PRN Reason: Constipation Melatonin (Melatonin 3 Mg Tab) 9 mg PO BEDTIME PRN PRN Reason: Sleep Midodrine (Midodrine 5 Mg Tab) 2.5 mg PO BID@0800,1800 [facility] Last Admin: 04/15/21 10:26 Dose: 2.5 mg Documented by: Mirtazapine (Mirtazapine 15 Mg Tab) 15 mg PO BEDTIME [facility] Last Admin: 04/14/21 20:09 Dose: 15 mg Documented by: Multivitamins/Minerals (Multivitamins With Iron/Calcium/Folic Acid/Minerals Tab) 1 tab PO DAILY [facility] Last Admin: 04/15/21 10:29 Dose: 1 tab Documented by: Non-Formulary Medication (Lutein/Min/Vit C/Vit E Acetate [Ocuvite Lutein]) 1 cap PO DAILY [facility] Last Admin: 04/15/21 10:24 Dose: Not Given Documented by: Ondansetron HCl (Ondansetron 4 Mg/2 Ml Sdv) 4 mg IV Q6H PRN PRN Reason: Nausea/Vomiting Ondansetron HCl (Ondansetron 4 Mg Tab.Dis) 4 mg PO Q6H PRN PRN Reason: Nausea able to take PO Oxycodone HCl (Oxycodone 5 Mg Tab) 5 - 10 mg PO Q4H PRN PRN Reason: Pain Senna (Sennosides 8.6 Mg Tab) 8.6 mg PO BID [facility] Last Admin: 04/15/21 10:28 Dose: 8.6 mg Documented by: Senna/Docusate Sodium (Docusate Sodium/Sennosides 50-8.6 Mg Tab) 1 tab PO BID PRN PRN Reason: Constipation Sodium Chloride (Sodium Chloride 0.9% 10 Ml Syringe) 10 ml FLUSH ASDIRECTED PRN PRN Reason: Keep Vein Open Last Admin: 04/14/21 12:17 Dose: 10 ml Documented by: Discontinued Medications Bupivacaine HCl (Bupivacaine 0.5% 50 Ml Mdv) Confirm Administered Dose 50 ml .ROUTE .STK-MED ONE Stop: 04/15/21 06:42 Fentanyl (Fentanyl 100 Mcg/2 Ml Sdv) Confirm Administered Dose 100 mcg .ROUTE .STK-MED ONE Stop: 04/15/21 08:04 Lactated Ringer's (Ringers, Lactated) 1,000 mls @ 75 mls/hr IV ASDIRECTED ALEJANDRO Linezolid (Zyvox) Confirm Administered Dose 300 mls @ as directed .ROUTE .STK- MED ONE Stop: 04/15/21 06:44 Cefazolin Sodium/Dextrose 2 gm (/ Premix) 50 mls @ 100 mls/hr IV ONETIME ONE Stop: 04/15/21 07:24 Last Admin: 04/15/21 08:00 Dose: 100 mls/hr Documented by: Lidocaine/Epinephrine (Lidocaine 1% With Epinephrine 1:100,000 50 Ml Mdv) Confi rm Administered Dose 50 ml .ROUTE .STK-MED ONE Stop: 04/15/21 06:43 Linezolid (Linezolid 600 Mg/300 Ml Bag) 600 mg IV .STK-MED ONE Stop: 04/15/21 09:21 Last Admin: 04/15/21 09:20 Dose: 600 mg Documented by: Meropenem (Meropenem 500 Mg Sdv) Confirm Administered Dose 500 mg .ROUTE .STK- MED ONE Stop: 04/15/21 06:43 Propofol (Propofol 200 Mg/20 Ml Sdv) Confirm Administered Dose 200 mg .ROUTE . STK-MED ONE Stop: 04/15/21 08:31 - Exam Quality Assessment: No: Supplemental Oxygen General: Alert, Oriented, Cooperative, No Acute Distress Lungs: Normal Respiratory Effort. No: Wheezing Cardiovascular: Regular Rate, Regular Rhythm GI/Abdominal Exam: Soft, No Distention Extremities: No Pedal Edema. No: Increased Warmth Skin: Warm, Dry Wound/Incisions: Dressing Dry and Intact, No Drainage Psy/Mental Status: Alert, Normal Affect - Patient Data Lab Results Last 24 hrs: Laboratory Results - last 24 hr 04/14/21 04/14/21 04/14/21 Range/Units 12:09 12:25 12:25 WBC 7.9 (4.5-11.0) K/uL RBC 4.03 L (4.30-5.90) M/uL Hgb 12.2 (12.0-15.0) g/dL Hct 37.3 L (40.0-54.0) % MCV 93 (80-98) fL MCH 30 (27-31) pg MCHC 33 (32-36) % Plt Count 183 (150-400) K/uL Neut % (Auto) 51.1 (36-66) % Lymph % (Auto) 34.0 (24-44) % Mccormick % (Auto) 12.1 H (2-6) % Eos % (Auto) 2.3 (2-4) % Baso % (Auto) 0.5 (0-1) % Sodium 142 (140-148) mmol/L Potassium 4.1 (3.6-5.2) mmol/L Chloride 109 H (100-108) mmol/L Carbon Dioxide 22 (21-32) mmol/L Anion Gap 15.1 H (5.0-14.0) mmol/L BUN 11 (7-18) mg/dL Creatinine 0.9 (0.8-1.3) mg/dL Est Cr Clr Drug Dosing 58.59 mL/min Estimated GFR (MDRD) > 60 (>60) Glucose 120 H (74-106) mg/dL Calcium 8.6 (8.5-10.1) mg/dL Total Bilirubin 0.5 (0.2-1.0) mg/dL AST 13 L (15-37) U/L ALT 16 (12-78) U/L Alkaline Phosphatase 72 (46-116) U/L Troponin I High Sens 21.3 (<=60.3) pg/mL Total Protein 6.4 (6.4-8.2) g/dL Albumin 3.2 L (3.4-5.0) g/dL Globulin 3.2 (2.3-3.5) g/dL Albumin/Globulin Ratio 1.0 L (1.2-2.2) TSH, Ultra Sensitive 3.743 H (0.358-3.740) uIU/mL Influenza Type A RNA (NEGATIVE) RSV RNA (INAAT) (NEGATIVE) Influenza Type B RNA (NEGATIVE) SARS-CoV-2 RNA (VIGNESH) (NEGATIVE) 04/14/21 Range/Units 14:16 WBC (4.5-11.0) K/uL RBC (4.30-5.90) M/uL Hgb (12.0-15.0) g/dL Hct (40.0-54.0) % MCV (80-98) fL MCH (27-31) pg MCHC (32-36) % Plt Count (150-400) K/uL Neut % (Auto) (36-66) % Lymph % (Auto) (24-44) % Mccormick % (Auto) (2-6) % Eos % (Auto) (2-4) % Baso % (Auto) (0-1) % Sodium (140-148) mmol/L Potassium (3.6-5.2) mmol/L Chloride (100-108) mmol/L Carbon Dioxide (21-32) mmol/L Anion Gap (5.0-14.0) mmol/L BUN (7-18) mg/dL Creatinine (0.8-1.3) mg/dL Est Cr Clr Drug Dosing mL/min Estimated GFR (MDRD) (>60) Glucose (74-106) mg/dL Calcium (8.5-10.1) mg/dL Total Bilirubin (0.2-1.0) mg/dL AST (15-37) U/L ALT (12-78) U/L Alkaline Phosphatase (46-116) U/L Troponin I High Sens (<=60.3) pg/mL Total Protein (6.4-8.2) g/dL Albumin (3.4-5.0) g/dL Globulin (2.3-3.5) g/dL Albumin/Globulin Ratio (1.2-2.2) TSH, Ultra Sensitive (0.358-3.740) uIU/mL Influenza Type A RNA Negative (NEGATIVE) RSV RNA (INAAT) Negative (NEGATIVE) Influenza Type B RNA Negative (NEGATIVE) SARS-CoV-2 RNA (VIGNESH) Negative (NEGATIVE) Result Diagrams: 04/14/21 12:25 04/14/21 12:25 Sepsis Event Note - Evaluation Sepsis Screening Result: No Definite Risk - Focused Exam Vital Signs: Vital Signs Temp Pulse Resp BP Pulse Ox 04/15/21 09:55 36.1 C 80 14 159/75 H 96 04/15/21 09:50 81 14 155/73 H 96 04/15/21 09:45 82 14 151/76 H 100 04/15/21 09:40 82 14 151/74 H 100 04/15/21 09:35 36.2 C 87 14 157/74 H 100 04/15/21 07:54 36.4 C 34 L 18 165/55 H 94 L 04/15/21 04:00 36.6 C 14 162/65 H 99 04/15/21 02:00 16 143/39 H 97 04/15/21 01:09 36.4 C 33 L 15 152/46 H 96 04/15/21 00:00 36.4 C 12 100/32 L 98 - Problem List & Annotations (1) Third degree AV block SNOMED Code(s): 15608763 Code(s): I44.2 - ATRIOVENTRICULAR BLOCK, COMPLETE Status: Acute Current Visit: Yes (2) CAD (coronary artery disease) SNOMED Code(s): 57189284 Code(s): I25.10 - ATHSCL HEART DISEASE OF [place] CORONARY ARTERY W/O ANG PCTRS Status: Chronic Current Visit: Yes Qualifiers: Coronary Disease-Associated Artery/Lesion type: [place] artery [place] vs. transplanted heart: [place] heart Associated angina: without angina Qualified Code(s): I25.10 - Atherosclerotic heart disease of [place] coronary artery without angina pectoris (3) Urinary retention SNOMED Code(s): 152744148 Code(s): R33.9 - RETENTION OF URINE, UNSPECIFIED Status: Chronic Current Visit: Yes - Problem List Review Problem List Initiated/Reviewed/Updated: Yes - My Orders Last 24 Hours: My Active Orders 04/14/21 14:23 Resuscitation Status Routine 04/14/21 16:59 Acetaminophen [TylenoL] 650 mg PO Q4H PRN Docusate Sodium/Sennosides [Senna Plus] 1 tab PO BID PRN LORazepam [Ativan] 0.5 mg IVPUSH Q4H PRN Magnesium Hydroxide [Milk of Magnesia] 30 ml PO Q12H PRN Melatonin 9 mg PO BEDTIME PRN Ondansetron [Zofran ODT] 4 mg PO Q6H PRN Ondansetron [Zofran] 4 mg IV Q6H PRN oxyCODONE 5 - 10 mg PO Q4H PRN 04/14/21 16:59 Patient Status [ADT] Routine Antiembolic Devices [RC] .Routine Cardiac Monitoring [RC] Q6H Intake and Output [RC] QSHIFT Notify Provider Consults [RC] ASDIRECTED Notify Provider Vital Signs [RC] ASDIRECTED Oxygen Therapy [RC] PRN Vital Signs [RC] Q2HR Consult to Physician [CONS] Routine Sequential Compression Device [OM.PC] Routine 04/14/21 18:00 Hypromellose [GenTeal Mild to Moderate Ophth Soln] 0 ml EYEBOTH QID Midodrine 2.5 mg PO BID@0800,1800 04/14/21 21:00 Acetaminophen [TylenoL] 650 mg PO TID Latanoprost [Xalatan 0.005% Ophth Soln] 0 ml EYEBOTH BEDTIME Mirtazapine [Remeron] 15 mg PO BEDTIME Sennosides [Senna] 8.6 mg PO BID 04/15/21 09:00 Aspirin 81 mg PO DAILY Famotidine [Pepcid] 20 mg PO DAILY Lutein/Min/Vit C/Vit E Acetate [Ocuvite Lutein] 1 cap PO DAILY Multivitamins w-Iron/Ca/FA/Min [Thera M Plus] 1 tab PO DAILY atorvaSTATin [Lipitor] 10 mg PO DAILY 04/15/21 11:55 PT Evaluation and Treatment [CONS] Routine - Plan Plan:: ASSESSMENT AND PLAN - Complete heart block-heart rate stable in the 30s overnight with no symptoms. Uneventful placement of a pacemaker this morning. -Cardiac monitoring -Surgical consultation for pacemaker placement appreciated -Physical therapy for postop evaluation Coronary artery disease-history of stenting about 20 years ago. No active anginal symptoms. -Continue medical management Urinary retention-chronic issue, stable. -Routine Arnold catheter care Maintenance issues - -DVT prophylaxis-mechanical -GI prophylaxis-H2 rosalba -Nutrition-regular diet -Arnold catheter-chronic indwelling catheter Disposition -I anticipate discharge home after the hospital stay Primary care physician - Rajani Catherine - [facility] Sukhwinder Jordan M.D.
[2021-04-15] MEDS: ceFAZolin 2 GM in Premix Bag 1 BAG IV SCH ×2 (16:20→23:41)
[2021-04-15] MEDS: Dextrose 5%-Lactated Ringers 1,000 ML IV SCH (17:12)
[2021-04-15] MEDS: Mirtazapine 15 MG Tab PO SCH (20:12)
[2021-04-15] MEDS: Latanoprost 0.005% Ophth Soln 2.5 ML Bottle EYEBOTH SCH (20:13)
[2021-04-16] MEDS: Dextrose 5%-Lactated Ringers 1,000 ML IV SCH (05:21)
[2021-04-16] MEDS: Hypromellose 0.3% Ophth Soln 15 ML Bottle EYEBOTH SCH ×2 (05:22→08:57)
[2021-04-16 06:10] VITALS: BP 168/81
[2021-04-16 07:09] VITALS: PULSE 94
[2021-04-16] MEDS: ceFAZolin 2 GM in Premix Bag 1 BAG IV SCH (07:56)
[2021-04-16] MEDS: Midodrine 5 MG Tab PO SCH (07:56)
[2021-04-16] MEDS: [UNRECOGNIZED DRUG - OTHER] PO SCH (08:49)
[2021-04-16] MEDS: LUTEIN PO SCH (08:49)
[2021-04-16] MEDS: VIT C PO SCH (08:49)
[2021-04-16] MEDS: Aspirin 81 MG Tab.Chew PO SCH (08:55)
[2021-04-16] MEDS: Multivitamins with Iron/Calcium/Folic Acid/Minerals Tab PO SCH (08:56)
[2021-04-16] MEDS: Sennosides 8.6 MG Tab PO SCH (08:56)
[2021-04-16] MEDS: Acetaminophen 325 MG Tab PO SCH (08:56)
[2021-04-16] MEDS: Famotidine 20 MG Tab PO SCH (08:56)
[2021-04-16] MEDS: atorvaSTATin 10 MG Tab PO SCH (08:56)
--- NOTE | 2021-04-16 10:12 | OR ---
DATE OF PROCEDURE: 04/15/2021 SURGEON: Nickolas Hendricks MD PREOPERATIVE DIAGNOSIS: Third-degree atrioventricular block. POSTOPERATIVE DIAGNOSIS: Third-degree atrioventricular block. OPERATIVE PROCEDURE: Insertion of transvenous dual-chamber cardiac pacemaker ([id number]). ANESTHESIA: Local plus IV sedation. INDICATIONS FOR PROCEDURE: The patient was admitted yesterday afternoon, noted to have a ventricular rate in the mid 30s with EKG showing third-degree AV block with a ventricular escape rhythm again in the mid 30s , fairly asymptomatic but clearly has indications for placement of a pacemaker though he is not on any medications that might cause him to have otherwise a conduction delay. Plan is to proceed with a dual-chamber pacemaker insertion. Potential risks including bleeding, infection, injury to vasculature and/or heart, or possible problems with pacemaker malfunctioning or the leads becoming dislodged as well as remote possibility of cardiac, pulmonary, or hemorrhagic complications leading to , and the patient wishes to proceed. DETAILS OF PROCEDURE: The patient was taken to the operating room, placed in a supine position. After IV sedation was administered, the upper chest and neck areas were prepped and draped. The subclavian area was then anesthetized with 1% lidocaine mixed with Marcaine, and the subclavian vein was then cannulated. Guidewire placed and positioned into the superior vena cava. Some additional local was injected, and transverse infraclavicular incision was made, carried down through the skin and subcutaneous tissue and pectoral fascia. At the level of plane of pectoral fascia, the pacemaker pocket was then bluntly dissected. A second lead was then placed via the subclavian vein and introduced into the peel-away catheters. The ventricular lead followed by the atrial lead were then placed. Ventricular lead was a Medtronic model #5076-58 and the atrial lead was Medtronic model #5076-52. The initial location was tested in the ventricle, which was in the mid septum in location, was satisfactory with a stimulation threshold of 0.9 V, impedance of 1244 ohms, and R-wave sensitivity of 6.7 mV. The second lead was then placed into the right atrium without difficulty again, and once again the first location tested and appeared to be satisfactory with the atrial stimulation threshold 0.8 V, impedance of 586 ohms, and P-wave sensing of 4.0 mV. Using fluoroscopy, it was confirmed that satisfactory slack was present in the leads. These were sutured to pacemaker pocket with some 3-0 Vicryl stitch. The pulse generator then was affixed to the leads, and immediately adequate pacing and sensing functions were noted. The wound throughout the procedure was intermittently irrigated with Zyvox-containing saline solution and was once again irrigated. Again, leads and pulse generator was then placed in the pocket, and the incision closed with a 3-0 Vicryl stitch at the fascial level, 3-0 Vicryl stitch at the subdermal level, and 5-0 Vicryl subcuticular stitch. Dressing was applied. The patient was taken to the recovery room in satisfactory condition. Of note, the pulse generator was a V[employer] Metrix, model #[id number] and was programmed with a lower rate of 60 and upper tracking rate of 130. Nickolas Hendricks MD /[id number]
--- NOTE | 2021-04-16 12:18 | DISCH ---
ADMISSION DIAGNOSES: Third-degree atrioventricular block, coronary artery disease, urinary retention. DISCHARGE DIAGNOSIS: Placement of dual chamber pacemaker for complete heart block. HISTORY: Butch carey is an 86-year-old male who lives in assisted living and had a routine vital sign check and was noted to have a heart rate of 36. He was brought to the emergency department, [facility] and was diagnosed with a third-degree AV block. Butch had his surgical procedure on 04/15/2029. After preoperative evaluation and discussion of possible risks and possible complications, he wished to proceed with surgical procedure. On postop day 1, Butch was able to be discharged to home. Pain was managed with Tylenol. Vital signs were normal. Activity good. Oral intake and output were normal. PHYSICAL EXAMINATION: GENERAL: Butch Carey is a pleasant 86-year-old male. VITAL SIGNS: Height is 5 feet 10 inches, weight is 155 pounds, BMI is 22. TPR is 98.4, 83, 15. Blood pressure 168/81. HEENT: Negative. NECK: Supple. CHEST: Incision left upper chest Steri-Stripped. No hematoma. Dressing was removed. HEART: Regular rate and rhythm. LUNGS: Clear. EXTREMITIES: Without peripheral edema. DISPOSITION: Discharged to home. CONDITION: Stable and improving. FOLLOWUP: Followup appointment with Nickolas Hendricks MD, on 04/30/2021 at 11 a.m. MEDICATIONS: He is to resume all his home medications, which include: 1. Refresh Tears 1 drop both eyes q.i.d. 2. Zofran 4 mg q.6 hours p.r.n. nausea. 3. Senna 8.6 mg b.i.d. 4. Mirtazapine 15 mg p.o. bedtime. 5. Acetaminophen 650 mg p.o. t.i.d. 6. Atorvastatin calcium 10 mg p.o. daily. 7. Multivitamin 1 tab daily. 8. Midodrine 2.5 mg p.o. b.i.d. 9. Ocuvite Lutein 1 capsule p.o. daily. 10.Xalatan 0.005% ophthalmic solution 1 drop in each eye at bedtime. 11.Famotidine 20 mg p.o. daily. 12.Aspirin 81 mg daily. 13.Albuterol sulfate/ProAir Digihaler 90 mcg inhaled every 4 hours p.r.n. shortness of breath. DIET: Usual diet as tolerated. Drink 8 to 10 glasses of water a day. ACTIVITY: As tolerated. Avoid lifting left arm overhead. Driving: Do not drive for 1 week. DISCHARGE INSTRUCTIONS: Shower/bathing: May shower. Keep operative site clean and dry. Notify provider if any fever or increased pain. /[id number]
== END 2021-04-16 10:55 | disposition home or self-care (01) | DRG 244 ==
LOC: JP.ED 11:47 → JP.ICU 14:21
PROVIDERS: ADMIT Internal Medicine; ATTEND Internal Medicine
PROC: 0JH606Z Insertion of Pacemaker, Dual Chamber into Chest Subcutaneous Tissue and Fascia, Open Approach (ICD-10-PCS; principal; 2021-04-15)
PROC: 02HL3JZ Insertion of Pacemaker Lead into Left Ventricle, Percutaneous Approach (ICD-10-PCS; 2021-04-15)
DX: I44.2 Atrioventricular block, complete (principal); I25.10 Atherosclerotic heart disease of native coronary artery without angina pectoris; R33.9 Retention of urine, unspecified; Z66 Do not resuscitate; H40.9 Unspecified glaucoma; H54.7 Unspecified visual loss; H91.90 Unspecified hearing loss, unspecified ear; K59.09 Other constipation; Z20.822 Contact with and (suspected) exposure to COVID-19; K21.9 Gastro-esophageal reflux disease without esophagitis; M19.90 Unspecified osteoarthritis, unspecified site; Z93.6 Other artificial openings of urinary tract status; Z95.5 Presence of coronary angioplasty implant and graft; Z86.73 Personal history of transient ischemic attack (TIA), and cerebral infarction without residual deficits; Z85.820 Personal history of malignant melanoma of skin; Z79.82 Long term (current) use of aspirin; Z79.899 Other long term (current) drug therapy
CPT/HCPCS: 0241U; 36415; 80053; 84443; 84484; 85025; 93005; 97162; 97530; 99285; A9270-GY; C1898; J0690; J2020; J2185; J2704; J3010; J3490; J7121

== ENCOUNTER 2021-05-15 07:25 | Day surgery (SDC) | payer MEDICARE, BC ==
[~2021-05-15 07:25] MED LIST: Bupivacaine 0.5% 50 ML MDV ONE; Lidocaine 1% with EPINEPHrine 1:100,000 50 ML MDV ONE
[2021-05-15] MEDS ORDERED: fentaNYL 100 MCG/2 ML SDV ONE (07:30)
[2021-05-15] MEDS ORDERED: Propofol 200 MG/20 ML SDV ONE (07:30)
[2021-05-15] MEDS ORDERED: Midazolam 1 MG/ML 2 ML SDV ONE (07:30)
[2021-05-15] MEDS ORDERED: Dextrose 5%-Lactated Ringers 1,000 ML IV SCH (08:15)
[2021-05-15] MEDS ORDERED: Bacitracin Oint 1 GM U/D Packet ONE (08:35)
[2021-05-15] MEDS ORDERED: ceFAZolin 2 GM in Premix Bag 1 BAG IV ONE (09:00)
[2021-05-15 11:25] VITALS: BP 141/61; PULSE 83
== END 2021-05-15 11:50 | disposition home or self-care (01) ==
LOC: JP.SDS 07:25
PROVIDERS: ATTEND Surgery
DX: D04.22 Carcinoma in situ of skin of left ear and external auricular canal (principal); K21.9 Gastro-esophageal reflux disease without esophagitis
CPT/HCPCS: 11644; 12052; 88305; J0690; J2250; J2704; J3010; J3490; J7121

== ENCOUNTER 2021-07-03 05:21 | Day surgery (SDC) | payer MEDICARE, BC ==
[2021-07-03] MEDS ORDERED: Acetaminophen 500 MG Tab PO ONE (05:45)
[2021-07-03] MEDS ORDERED: Albuterol/Ipratropium 3.0-0.5 MG/3 ML Neb Soln NEB ONE (06:30)
[2021-07-03] MEDS ORDERED: Meropenem 500 MG SDV ONE (06:38)
[2021-07-03] MEDS ORDERED: Lidocaine 1% with EPINEPHrine 1:100,000 50 ML MDV ONE (06:38)
[2021-07-03] MEDS ORDERED: Bupivacaine 0.5% 50 ML MDV ONE (06:38)
[2021-07-03] MEDS: Dextrose 5%-Lactated Ringers 1,000 ML IV SCH ×3 (06:42→22:51)
[2021-07-03] MEDS ORDERED: Rocuronium 50 MG/5 ML Vial ONE (07:02)
[2021-07-03] MEDS ORDERED: Propofol 200 MG/20 ML SDV ONE (07:02)
[2021-07-03] MEDS ORDERED: Succinylcholine 200 MG/10 ML MDV ONE (07:02)
[2021-07-03] MEDS ORDERED: Glycopyrrolate 0.2 MG/ML 5 ML MDV ONE (07:02)
[2021-07-03] MEDS ORDERED: Dexamethasone 4 MG/ML SDV ONE (07:02)
[2021-07-03] MEDS ORDERED: Ondansetron 4 MG/2 ML SDV ONE (07:02)
[2021-07-03] MEDS ORDERED: Neostigmine Methylsulfate 1 MG/ML 5 ML Syringe ONE (07:02)
[2021-07-03] MEDS ORDERED: fentaNYL 250 MCG/5 ML SDV ONE (07:04)
[2021-07-03] MEDS ORDERED: cefOXitin 2 GM in Sodium Chloride 0.9% 50 ML IV ONE (07:15)
[2021-07-03] MEDS ORDERED: Ropivacaine 35 ML, dexAMETHasone 8 MG, EPINEPHrine 0.4 MG, Sodium Chloride 0.9% 42.6 ML NERVRT SCH ×4 (07:30)
[2021-07-03] MEDS ORDERED: ceFAZolin 2 GM in Premix Bag 1 BAG IV ONE ×2 (07:32→08:00)
[2021-07-03] MEDS ORDERED: Sugammadex Sodium 200 MG/2 ML VIAL ONE (07:46)
[2021-07-03] MEDS ORDERED: traMADol 50 MG Tab PO PRN (09:32)
[2021-07-03] MEDS ORDERED: hydrOXYzine HCl 25 MG Tab PO PRN (09:34)
[2021-07-03] MEDS ORDERED: Ondansetron 4 MG/2 ML SDV IVPUSH PRN (09:34)
[2021-07-03] MEDS ORDERED: Cyclobenzaprine 10 MG Tab PO PRN (09:35)
[2021-07-03] MEDS ORDERED: Albuterol 8 GM Inhaler INH PRN (10:01)
[2021-07-03] MEDS: Hypromellose 0.3% Ophth Soln 15 ML Bottle EYEBOTH SCH ×3 (10:56→22:54)
[2021-07-03] MEDS: Famotidine 20 MG Tab PO SCH (10:57)
[2021-07-03] MEDS: Multivitamins with Iron/Calcium/Folic Acid/Minerals Tab PO SCH (11:01)
[2021-07-03] MEDS: Acetaminophen 325 MG Tab PO SCH ×2 (15:05→20:15)
[2021-07-03] MEDS: ceFAZolin 2 GM in Premix Bag 1 BAG IV SCH ×2 (15:21→22:52)
[2021-07-03] MEDS: Sennosides 8.6 MG Tab PO SCH (20:16)
[2021-07-03] MEDS ORDERED: Latanoprost 0.005% Ophth Soln 2.5 ML Bottle EYEBOTH SCH (21:00)
[2021-07-03] MEDS ORDERED: atorvaSTATin 10 MG Tab PO SCH (21:00)
[2021-07-03] MEDS ORDERED: Mirtazapine 15 MG Tab PO SCH (21:00)
[2021-07-04] MEDS: Acetaminophen 325 MG Tab PO SCH ×2 (04:19→07:45)
[2021-07-04] MEDS: ceFAZolin 2 GM in Premix Bag 1 BAG IV SCH (06:00)
[2021-07-04] MEDS: Hypromellose 0.3% Ophth Soln 15 ML Bottle EYEBOTH SCH ×2 (06:00→09:09)
[2021-07-04 07:33] VITALS: BP 150/72; PULSE 101
[2021-07-04] MEDS ORDERED: Aspirin 81 MG Tab.EC PO SCH (09:00)
[2021-07-04] MEDS: Multivitamins with Iron/Calcium/Folic Acid/Minerals Tab PO SCH (09:09)
[2021-07-04] MEDS: Famotidine 20 MG Tab PO SCH (09:09)
[2021-07-04] MEDS: Sennosides 8.6 MG Tab PO SCH (09:09)
== END 2021-07-04 09:52 | disposition home health service (06) ==
LOC: JP.SDS 05:21 → JP.MS 08:05 → JP.SDS 07-04 09:52
PROVIDERS: ATTEND Surgery
DX: L98.0 Pyogenic granuloma (principal); K42.0 Umbilical hernia with obstruction, without gangrene; C44.509 Unspecified malignant neoplasm of skin of other part of trunk; L08.9 Local infection of the skin and subcutaneous tissue, unspecified; I10 Essential (primary) hypertension; I25.10 Atherosclerotic heart disease of native coronary artery without angina pectoris; E11.9 Type 2 diabetes mellitus without complications; K21.9 Gastro-esophageal reflux disease without esophagitis; E78.1 Pure hyperglyceridemia; Z79.82 Long term (current) use of aspirin; Z79.899 Other long term (current) drug therapy
CPT/HCPCS: 36415; 80053; 83735; 83880; 84100; 85027; 88304; 88341; 88342; 93005; 94640; A9270-GY; J0171; J0330; J0690; J1100; J2020; J2185; J2405; J2704; J2710; J2795; J3010; J3490; J7121; J7620